=== PATIENT | male | born 1975 | race Caucasian/White ===

== ENCOUNTER 2017-12-28 09:53 | Emergency (ER) | payer OTHER ==
[~2017-12-28] VITALS: Ht 188 cm; Wt 81.7 kg
[2017-12-28 09:54] VITALS: BP 134/87
[2017-12-28] MEDS ORDERED: CYCLOBENZAPRINE5 MG PO (10:32)
[2017-12-28] MEDS ORDERED: HYDROCODONE-AP1 EAC6 PO (10:32)
== END 2017-12-28 10:45 | disposition home or self-care (01) ==
LOC: ER 09:53
DX: S16.1XXA Strain of muscle, fascia and tendon at neck level, initial encounter (principal); S00.81XA Abrasion of other part of head, initial encounter; M25.561 Pain in right knee; Z91.041 Radiographic dye allergy status; V59.9XXA Occupant (driver) (passenger) of pick-up truck or van injured in unspecified traffic accident, initial encounter; Y93.I9 Activity, other involving external motion; Y92.89 Other specified places as the place of occurrence of the external cause; Y99.8 Other external cause status